=== PATIENT | male | born 1955 | race African-American/Black ===

== ENCOUNTER 2017-03-10 11:32 | Emergency (ER) | payer OTHER ==
[~2017-03-10] VITALS: Ht 167.6 cm; Wt 56.7 kg
[~2017-03-10 11:32] MED LIST: ACYCLOVIR200 MG ORAL; ALBUTEROL SULF8.5 GM INH; AZITHROMYCIN250 MG ORAL; CHERATUSSIN AC118 ML PO; FLOMAX0.4 MG ORAL; IBUPROFEN600 MG ORAL; NAPROSYN500 M1 ORAL; NORCO 5-325 TA1 EACH ORAL; NORVIR100 MG ORAL; PREDNISONE20 MG ORAL; PRENATAL MULTI1 EAC1 PO; PROAIR HFA8.5 GM INH; PROMETHAZINE-C118 M1 ORAL; REYATAZ150 MG ORAL; TRUVADA 200 MG1 EAC1 ORAL
[2017-03-10 11:50] VITALS: BP 120/77
--- NOTE | 2017-03-10 12:31 | Diagnostic Imaging Report ---
Indication: Cough Comparison: 02/08/15 A single view chest radiograph was obtained. Findings: Cardiomediastinal appearance is within normal limits for age. Pulmonary vascularity is appropriate. The diaphragmatic contour is smooth and costophrenic angles are sharp. No pleural effusions are identified. The bones are osteopenic. Impression: No acute findings
[2017-03-10] MEDS ORDERED: PROMETHAZINE-C118 M1 ORAL (12:36)
[2017-03-10] MEDS ORDERED: AMOXICILLIN500 MG ORAL (12:36)
[2017-03-10 12:40] VITALS: BP 110/78
--- NOTE | 2017-03-10 13:09 | Emergency Room Report ---
History of Present Illness General Chief Complaint: Upper Respiratory Illness Present Illness HPI 61-year-old male presents ED for evaluation. Patient is having cough and congestive symptoms for the last 2 days. Cough is productive with yellow phlegm. Denies fevers chills. Denies chest pain or shortness of breath. Patient has history of AIDS, states he is compliant with his medications. Denies sick contacts or recent travel. No other aggravating or leading factors. Denies any other associated symptoms Allergies: Coded Allergies: No Known Allergies (Unverified , 09/03/12) Patient History Past Medical History: none Past Surgical History: none Pertinent Family History: none Social History: Denies: smoking, alcohol use, drug use Immunizations: UTD Reviewed Nursing Documentation: PMH: Agreed, PSxH: Agreed Nursing Documentation-PMH Hx Hypertension: No - HEP B Hx Pacemaker: No Hx Asthma: No Hx COPD: No Hx Diabetes: No Hx Cancer: No Hx Gastrointestinal Problems: No Hx Dialysis: No Hx Cerebrovascular Accident: No Hx Seizures: No Review of Systems All Other Systems: negative except mentioned in HPI Physical Exam Vital Signs Date Time Temp Pulse Resp B/P (MAP) Pulse Ox O2 Delivery O2 Flow Rate FiO2 03/10/17 11:40 98.4 117 20 114/83 99 Room Air Sp02 EP Interpretation: reviewed, normal General Appearance: no apparent distress, alert, GCS 15, non-toxic Head: normocephalic, atraumatic Eyes: bilateral eye normal inspection, bilateral eye PERRL ENT: hearing grossly normal, normal pharynx, no angioedema, normal voice Neck: full range of motion, supple/symm/no masses Respiratory: chest non-tender, lungs clear, normal breath sounds, speaking full sentences Cardiovascular #1: regular rate, rhythm, no edema Cardiovascular #2: 2+ carotid (R), 2+ carotid (L), 2+ radial (R), 2+ radial (L) , 2+ dorsalis pedis (R), 2+ dorsalis pedis (L) Gastrointestinal: normal bowel sounds, non tender, soft, non-distended, no guarding, no rebound Rectal: deferred Genitourinary: normal inspection, no CVA tenderness Musculoskeletal: back normal, gait/station normal, normal range of motion, non- tender Neurologic: alert, oriented x3, responsive, motor strength/tone normal, sensory intact, speech normal Psychiatric: judgement/insight normal, memory normal, mood/affect normal, no suicidal/homicidal ideation Reflexes: 3+ bicep (R), 3+ bicep (L), 3+ tricep (R), 3+ tricep (L), 3+ knee (R) , 3+ knee (L) Skin: normal color, no rash, warm/dry, well hydrated Lymphatic: no adenopathy Medical Decision Making Diagnostic Impression: Primary Impression: Atypical pneumonia ER Course Hospital Course 61-year-old male presents to ED complaining of cough x 2 days Differential diagnoses include: URI, pharyngitis, otitis media, asthma Clinical course Patient placed on stretcher. After initial history, physical exam reveals an elderly male in no acute distress. Bilateral TM unremarkable. No pharyngeal erythema. No tonsillar exudates. No lymphadenopathy. lungs clear. abdomen soft. CXR shows no evidence of infiltrate however, given age and comorbditiies we will treat as atypical pneumonia. I will prescribe abx Diagnosis - atypical pneumonia Stable and discharged home with Rx Amoxicillin, cough syrup. Instructed to followup with PMD. Return to ED if symptoms recur or worsen Chest X-Ray Diagnostic Results Chest X-Ray Diagnostic Results : Chest X-Ray Ordered: Yes # of Views/Limited/Complete: 1 View Indication: Other - cough EP Interpretation: Yes Interpretation: no consolidation, no effusion, no pneumothorax, no acute cardiopulmonary disease Impression: No acute disease Electronically Signed by: Electronically signed by Larry Dotson MD Last Vital Signs Date Time Temp Pulse Resp B/P (MAP) Pulse Ox O2 Delivery O2 Flow Rate FiO2 03/10/17 12:40 87 15 110/78 100 Room Air 03/10/17 12:40 98.4 Status: improved Disposition: HOME, SELF-CARE Condition: Stable Scripts Codeine/Promethazine Hcl* (PROMETHAZINE-CODEINE SYRUP*) 118 Ml Syrup 5 ML ORAL Q6H Y for For Cough, #118 ML 0 Refills Prov: LARRY DOTSON M.D. 03/10/17 Amoxicillin* (AMOXIL*) 500 Mg Capsule 500 MG ORAL THREE TIMES A DAY, #21 CAP Prov: LARRY DOTSON M.D. 03/10/17 Patient Instructions: Community-Acquired Pneumonia, Adult, [id number] LARRY DOTSON M.D. Mar 10, 2017 13:09
== END 2017-03-10 12:40 | disposition home or self-care (01) ==
LOC: EMR 12:00
DX: J18.9 Pneumonia, unspecified organism (principal)
CPT/HCPCS: 71010; 99284

== ENCOUNTER 2017-03-16 12:21 | Emergency (ER) | payer OTHER ==
[~2017-03-16] VITALS: Ht 172.7 cm; Wt 59.0 kg
[~2017-03-16 12:21] MED LIST changes: +AMOXICILLIN500 MG ORAL
[2017-03-16 12:41] VITALS: BP 118/72
--- NOTE | 2017-03-16 13:26 | Emergency Room Report ---
History of Present Illness General Chief Complaint: Flu Like Symptoms Source: Patient Present Illness HPI 61-year-old male HIV positive on treatment, unknown last CD4 count, presenting with one week of subjective fever chills cough and shortness of breath. Patient states that his productive cough with clear sputum. Subjective fever has not measured it. Has not taken any medication. Patient was last seen in the emergency room 6 days ago, had a chest x-ray was discharged. No sick contacts or recent travel Allergies: Coded Allergies: No Known Allergies (Unverified , 09/03/12) Patient History Past Medical History: see triage record Past Surgical History: none Pertinent Family History: none Reviewed Nursing Documentation: PMH: Agreed, PSxH: Agreed Nursing Documentation-PMH Hx Hypertension: No - HEP B Hx Pacemaker: No Hx Asthma: No Hx COPD: No Hx Diabetes: No Hx Cancer: No Hx Gastrointestinal Problems: No Hx Dialysis: No Hx Cerebrovascular Accident: No Hx Seizures: No Review of Systems All Other Systems: negative except mentioned in HPI Physical Exam Vital Signs Date Time Temp Pulse Resp B/P (MAP) Pulse Ox O2 Delivery O2 Flow Rate FiO2 03/16/17 12:33 97.5 88 18 119/75 98 03/16/17 12:39 Room Air Sp02 EP Interpretation: reviewed, normal General Appearance: alert, GCS 15, non-toxic, mild distress, other - Appear short of breath however speaking complete sentences, nontoxic appearing Head: normocephalic, atraumatic Eyes: bilateral eye normal inspection, bilateral eye PERRL, bilateral eye EOMI ENT: normal ENT inspection, normal pharynx, normal voice, moist mucus membranes Neck: normal inspection, full range of motion, supple Respiratory: lungs clear, no retraction, no wheezing, respiratory distress, speaking full sentences, other - Clear breath sounds bilaterally, chest symmetrical Cardiovascular #1: normal inspection, regular rate, rhythm, no edema, normal capillary refill Cardiovascular #2: 2+ radial (R), 2+ radial (L) Gastrointestinal: normal inspection, non tender, soft, non-distended, no guarding Genitourinary: no CVA tenderness Musculoskeletal: normal inspection, back normal, normal range of motion, non- tender Neurologic: normal inspection, alert, oriented x3, responsive, motor strength/ tone normal, sensory intact, normal gait, speech normal Psychiatric: normal inspection, judgement/insight normal, memory normal Skin: normal inspection, normal color, no rash, warm/dry, well hydrated, normal turgor Medical Decision Making Diagnostic Impression: Primary Impression: Atypical pneumonia ER Course 61-year-old male, HIV positive, presenting with cough for 10 days DDX: Viral URI vs. pneumonia Patient also HIV-positive, immunocompromised Plan: Will perform blood work including blood cultures, CXR ER course: Patient remains nontoxic CXR obtained + interstitial infiltrates Got one nebs tx has been nad, VSS, not hypoxic or tachypneic Disposition: Patient is to be discharged home with a prescription of teskeena medinaes. He is alreayd on amox from previous ED visit and is instructed to continue to take that abx Strict precautions discussed with patient on when to return to the emergency room including hemoptysis, high fevers, chills, SOB, chest pain which may indicate severe illness. Patient is to follow up with their primary care doctor within 5 days. Patient agrees with plan. Please note that this Emergency Department Report was dictated using [employer] writer technology software, occasionally this can lead to erroneous entry secondary to interpretation by the dictation equipment EKG Diagnostic Results EP Interpretation: Yes Rate: normal Rhythm: NSR ST Segments: No acute changes ASA given to patient: no Rhythm Strip EP Interpretation: Yes Rate: 62 Rhythm: NSR, no PVCs, no ectopy Chest X-ray CXR: Ordered: Yes 1 view Indication: SOB EP interpretation: Yes Interpretation: interstitial infiltrates Impression: interstit infiltrates Electronically signed by Timoteo Nagy MD Laboratory Tests Test 03/16/17 14:10 03/16/17 14:16 White Blood Count 4.0 K/UL (4.8-10.8) L Red Blood Count 3.79 M/UL (4.70-6.10) L Hemoglobin 12.0 G/DL (14.2-18.0) L Hematocrit 35.8 % (42.0-52.0) L Mean Corpuscular Volume 95 FL (80-99) Mean Corpuscular Hemoglobin 31.6 PG (27.0-31.0) H Mean Corpuscular Hemoglobin Concent 33.4 G/DL (32.0-36.0) Red Cell Distribution Width 10.4 % (11.6-14.8) L Platelet Count 273 K/UL (150-450) Mean Platelet Volume 5.9 FL (6.5-10.1) L Neutrophils (%) (Auto) 61.3 % (45.0-75.0) Lymphocytes (%) (Auto) 24.6 % (20.0-45.0) Monocytes (%) (Auto) 10.2 % (1.0-10.0) H Eosinophils (%) (Auto) 2.4 % (0.0-3.0) Basophils (%) (Auto) 1.4 % (0.0-2.0) Urine Color Yellow Urine Appearance Clear Urine pH 6 (4.5-8.0) Urine Specific [place] 1.010 (1.005-1.035) Urine Protein Negative (NEGATIVE) Urine Glucose (UA) Negative (NEGATIVE) Urine Ketones Negative (NEGATIVE) Urine Occult Blood Negative (NEGATIVE) Urine Nitrite Negative (NEGATIVE) Urine Bilirubin Negative (NEGATIVE) Urine Urobilinogen 1 MG/DL (0.0-1.0) H Urine Leukocyte Esterase 1+ (NEGATIVE) H Urine RBC 0-2 /HPF (0 - 0) H Urine WBC 0-2 /HPF (0 - 0) Urine Squamous Epithelial Cells Occasional /LPF Urine Bacteria Occasional /HPF (NONE) Sodium Level 139 MMOL/L (136-145) Potassium Level 3.7 MMOL/L (3.5-5.1) Chloride Level 103 MMOL/L (98-107) Carbon Dioxide Level 29 MMOL/L (21-32) Anion Gap 7 mmol/L (5-15) Blood Urea Nitrogen 9 mg/dL (7-18) Creatinine 1.2 MG/DL (0.55-1.30) Estimate Glomerular Filtration Rate > 60 mL/min (>60) Glucose Level 132 MG/DL (74-106) H Calcium Level 9.1 MG/DL (8.5-10.1) Total Bilirubin 1.3 MG/DL (0.2-1.0) H Direct Bilirubin 0.2 MG/DL (0.0-0.3) Aspartate Amino Transferase (AST) 21 U/L (15-37) Alanine Aminotransferase (ALT) 18 U/L (12-78) Alkaline Phosphatase 44 U/L (46-116) L Total Protein 7.1 G/DL (6.4-8.2) Albumin 3.2 G/DL (3.4-5.0) L Globulin 3.9 g/dL Albumin/Globulin Ratio 0.8 (1.0-2.7) L Lactic Acid Level 1.20 mmol/L (0.66-2.22) Last Vital Signs Date Time Temp Pulse Resp B/P (MAP) Pulse Ox O2 Delivery O2 Flow Rate FiO2 03/16/17 12:41 97.6 66 15 118/72 100 Room Air Disposition: HOME, SELF-CARE Condition: Improved Scripts Benzonatate* (LOTTIE SOUZA*) 100 Mg Capsule 100 MG ORAL THREE TIMES A DAY for 7 Days, #21 PERLE 0 Refills Prov: Timoteo Nagy M.D. 03/16/17 Timoteo Nagy M.D. Mar 16, 2017 13:26
[2017-03-16] MEDS ORDERED: TESSALON PERLE100 MG ORAL (13:28)
[2017-03-16 14:25] VITALS: BP 105/74
[2017-03-16 14:30] LABS: APPEARANCE,URINE CLEAR; KETONES,URINE NEGATIVE (NEGATIVE); LEUKOCYTE ESTERASE ,URINE 1+ (NEGATIVE); NITRITE,URINE NEGATIVE (NEGATIVE); PH,URINE 6 (4.5-8.0); PROTEIN,URINE NEGATIVE (NEGATIVE); UROBILINOGEN,URINE 1 MG/DL (0.0-1.0)
[2017-03-16] MEDS ORDERED: Albuterol ud Inhalation HHN ONE (14:30)
[2017-03-16 14:32] LABS: BASOPHILS % (AUTO) 1.4 % (0.0-2.0); EOSINOPHILS % (AUTO) 2.4 % (0.0-3.0); LYMPHOCYTES % (AUTO) 24.6 % (20.0-45.0); MEAN CORPUSCULAR HEMOGLOBIN 31.6 PG (27.0-31.0); MEAN CORPUSCULAR HGB CONC 33.4 G/DL (32.0-36.0); MEAN CORPUSCULAR VOLUME 95 FL (80-99); MEAN PLATELET VOLUME 5.9 FL (6.5-10.1); MONOCYTES % (AUTO) 10.2 % (1.0-10.0); NEUTROPHILS % (AUTO) 61.3 % (45.0-75.0); PLATELET COUNT 273 K/UL (150-450); RED BLOOD COUNT 3.79 M/UL (4.70-6.10); RED CELL DISTRIBUTION WIDTH 10.4 % (11.6-14.8)
[2017-03-16 14:40] LABS: BACTERIA,URINE OCCASIONAL /HPF; RBC,URINE 0-2 /HPF (0 - 0); SQUAMOUS EPITHELIAL CELL,UR OCCASIONAL /LPF (NONE/OCC); WBC,URINE 0-2 /HPF (0 - 0)
--- NOTE | 2017-03-16 14:51 | Diagnostic Imaging Report ---
Indication: COUGH Technique: One view of the chest Comparison: 03/10/2017 Findings: Lungs and pleural spaces are clear. Heart size is normal. No significant change Impression: No acute process
[2017-03-16 15:14] VITALS: BP 116/72
[2017-03-16 15:14] LABS: ALANINE AMINOTRANSFERASE 18 U/L (12-78); ALBUMIN/GLOBULIN RATIO 0.8 (1.0-2.7); ANION GAP 7 mmol/L (5-15); ASPARTATE AMINO TRANSFERASE 21 U/L (15-37); CALCIUM 9.1 MG/DL (8.5-10.1); CARBON DIOXIDE 29 MMOL/L (21-32); CHLORIDE 103 MMOL/L (98-107); CREATININE 1.2 MG/DL (0.55-1.30); GLOMERULAR FILTRATION RATE > 60 mL/min (>60); POTASSIUM 3.7 MMOL/L (3.5-5.1); SODIUM 139 MMOL/L (136-145); TOTAL PROTEIN 7.1 G/DL (6.4-8.2)
[2017-03-16 15:17] LABS: BILIRUBIN,DIRECT 0.2 MG/DL (0.0-0.3)
--- NOTE | 2017-03-18 15:22 | Cardiology Report ---
APPROVED REPORT EKG Measurement Heart [id number] Normal sinus rhythm Normal ECG
== END 2017-03-16 15:17 | disposition home or self-care (01) ==
LOC: EMR 13:34
DX: J18.9 Pneumonia, unspecified organism (principal)
CPT/HCPCS: 36415; 71010; 80053; 81003; 82248; 83605; 85025; 87040; 93005; 94640; 94664; 99283

== ENCOUNTER 2017-09-25 12:09 | Emergency (ER) | payer OTHER ==
[~2017-09-25] VITALS: Ht 170.2 cm; Wt 61.2 kg
[~2017-09-25 12:09] MED LIST changes: +TESSALON PERLE100 MG ORAL
--- NOTE | 2017-09-25 12:39 | Emergency Room Report ---
History of Present Illness General Chief Complaint: Male Urogenital Problems Source: Patient Present Illness HPI 62-year-old male patient presents to ER requesting HIV testing. Patient reports that he was told by a "friend" that he contracted HPV from saliva. Patient requesting HPV testing. Patient reports that he also experienced a sore on his penis yesterday but it disappeared today. Patient denies dysuria, hematuria, penile discharge. Patient denies testicular pain or swelling. Patient reports history of HIV. Patient reports that he had his labs drawn a month ago and since they were "normal, reports viral load was detectable. Patient reports history of sexual encounter 2 days ago. Reports use protection during sex. Patient denies fever, chest pain, shortness of breath. patient reports he has appointment with his physician in a few days. Allergies: Coded Allergies: No Known Allergies (Unverified , 09/03/12) Patient History Past Medical History: see triage record Reviewed Nursing Documentation: PMH: Agreed; PSxH: Agreed Nursing Documentation-PMH Hx Hypertension: No - HEP B Hx Pacemaker: No Hx Asthma: No Hx COPD: No Hx Diabetes: No Hx Cancer: No Hx Gastrointestinal Problems: No Hx Dialysis: No Hx Cerebrovascular Accident: No Hx Seizures: No Review of Systems All Other Systems: negative except mentioned in HPI Physical Exam Vital Signs Date Time Temp Pulse Resp B/P (MAP) Pulse Ox O2 Delivery O2 Flow Rate FiO2 09/25/17 12:28 98.4 71 16 119/81 100 Room Air 98.4 Sp02 EP Interpretation: reviewed, normal General Appearance: well appearing, no apparent distress, alert, GCS 15, non- toxic Head: normocephalic, atraumatic Eyes: bilateral eye normal inspection, bilateral eye PERRL ENT: hearing grossly normal, normal pharynx, no angioedema, normal voice, uvula midline, moist mucus membranes Neck: full range of motion Respiratory: lungs clear, normal breath sounds, no rhonchi, no respiratory distress, no accessory muscle use, no wheezing, speaking full sentences Cardiovascular #1: regular rate, rhythm, no edema Genitourinary: no CVA tenderness, penis normal - Circumcised, other - No vesicles, no rash, no lesion, no ulcer, no testicular swelling, no inguinal adenopathy. Musculoskeletal: back normal, digits/nails normal, gait/station normal, normal range of motion, non-tender Neurologic: alert, oriented x3, responsive, motor strength/tone normal, sensory intact Psychiatric: mood/affect normal Skin: no rash Medical Decision Making PA Attestation Dr. Nielsen is my supervising Physician whom patient management has been discussed with. Diagnostic Impression: Primary Impression: Encounter for assessment of sexually transmitted disease exposure ER Course Pt. presents to the ED for HPV testing. Hx of HIV. Multiple differentials considered. Vital signs: are WNL, pt. is afebrile Ordered UA. ER COURSE: UA negative for nitrites, leukocyte esterase, patient asx, low suspicion for UTI. PE benign, no penile discharge, no testicular swelling, no genital warts or lesions, visible. Patient denies acute complaints currently. Instructed patient to followup at scheduled appointment with PCP for HPV testing. Discuss HPV with patient. Provided patient with reading material regarding HPV. Practice safe sex. Do not have unprotected sex when HIV positive.Must inform partner of HIV status. Reports had unprotected sex years ago and then was diagnosed with HIV following this exposure. Denies recent unprotected sexual contact, has protected sex with single partner. DISCHARGE: Advised to use safe sex practices including but not limited to use of condoms. Instructed patient to follow up with STI clinic and/or PCP for future STI treatment and prevention. Instructed patient to inform partner of need for treatment to prevent future infection. Patient is resting comfortably, in no acute distress, nontoxic appearing, talking without difficulty. Patient to take medications as instructed Will provide with patient care instructions and any necessary prescriptions. Care plan and follow-up instructions provided. Patient instructed to follow-up with primary care provider in 3 - 5 days. Patient questions asked and answered. Patient reports understanding and agreement to treatment plan. ER precautions given. Patient instructed to return to ER immediately for any new or worsening of symptoms including but not limited to increasing SOB, persistent fever. - Please note that this Emergency Department Report was dictated using [employer] tr[employer] technology software, occasionally this can lead to erroneous entry secondary to interpretation by the dictation equipment. Labs Test 09/25/17 12:41 Urine Color Pale yellow Urine Appearance Clear Urine pH 6 (4.5-8.0) Urine Specific [place] 1.005 (1.005-1.035) Urine Protein Negative (NEGATIVE) Urine Glucose (UA) Negative (NEGATIVE) Urine Ketones Negative (NEGATIVE) Urine Occult Blood Negative (NEGATIVE) Urine Nitrite Negative (NEGATIVE) Urine Bilirubin Negative (NEGATIVE) Urine Urobilinogen Normal MG/DL (0.0-1.0) Urine Leukocyte Esterase Negative (NEGATIVE) Last Vital Signs Date Time Temp Pulse Resp B/P (MAP) Pulse Ox O2 Delivery O2 Flow Rate FiO2 09/25/17 12:28 98.4 71 16 119/81 100 Room Air 98.4 Disposition: HOME, SELF-CARE Condition: Stable Patient Instructions: Genital Warts, [id number], HPV Test, Human Papillomavirus, [id number] Additional Instructions: Followup with primary care provider at scheduled appointment. Request HPV testing at that time. Have labs drawn to check for viral load and white blood cell count levels. Follow-up of STI clinic if concern for STI Use condoms during sex. Take medications as directed. Patient questions asked and answered. ER precautions given, patient instructed to return to ER immediately for any new or worsening of symptoms. Gera Crum September 25, 2017 12:39
[2017-09-25 13:07] LABS: APPEARANCE,URINE CLEAR; BILIRUBIN, URINE NEGATIVE (NEGATIVE); COLOR,URINE PALE YELLOW; GLUCOSE, URINE (UA) NEGATIVE (NEGATIVE); KETONES,URINE NEGATIVE (NEGATIVE); LEUKOCYTE ESTERASE ,URINE NEGATIVE (NEGATIVE); NITRITE,URINE NEGATIVE (NEGATIVE); PH,URINE 6 (4.5-8.0); PROTEIN,URINE NEGATIVE (NEGATIVE); UROBILINOGEN,URINE NORMAL MG/DL (0.0-1.0)
[2017-09-25 13:30] VITALS: BP 120/81
== END 2017-09-25 13:35 | disposition home or self-care (01) ==
LOC: EMR 12:54
DX: Z04.8 Encounter for examination and observation for other specified reasons (principal); Z20.2 Contact with and (suspected) exposure to infections with a predominantly sexual mode of transmission
CPT/HCPCS: 81003; 99283

== ENCOUNTER 2017-11-11 21:48 | Emergency (ER) | payer OTHER ==
[~2017-11-11] VITALS: Ht 170.2 cm; Wt 56.7 kg
--- NOTE | 2017-11-11 22:10 | Emergency Room Report ---
History of Present Illness General Chief Complaint: Pain Source: Patient Present Illness HPI Patient fell backwards from the stool that slipped out from under him. He landed on his left hand. He has left thumb pain. There is no numbness. There was no loss of consciousness. Pain rated at 9/10, aching. Some swelling of the thumb. No fevers, blood thinners, back pain, other extremity pain. The patient is a keyboard player. R handed, but needs both hands. Allergies: Coded Allergies: No Known Allergies (Unverified , 11/11/17) Patient History Social History: Reports: smoking, alcohol use Social History Narrative keyboard player Reviewed Nursing Documentation: PMH: Agreed; PSxH: Agreed Nursing Documentation-PMH Past Medical History: No Stated History Hx Hypertension: No - HEP B Hx Pacemaker: No Hx Asthma: No Hx COPD: No Hx Diabetes: No Hx Cancer: No Hx Gastrointestinal Problems: No Hx Dialysis: No Hx Cerebrovascular Accident: No Hx Seizures: No Review of Systems Constitutional: Reports: see HPI Musculoskeletal: Reports: see HPI Skin: Reports: see HPI Neurological: Reports: see HPI Hematologic/Lymphatic: Reports: see HPI Physical Exam Vital Signs Date Time Temp Pulse Resp B/P (MAP) Pulse Ox O2 Delivery O2 Flow Rate FiO2 11/11/17 22:00 98.0 68 18 122/85 98 Room Air 98.1 Sp02 EP Interpretation: reviewed, normal General Appearance: well appearing, no apparent distress, GCS 15, other - sl alcohol breath Head: normocephalic, atraumatic Eyes: bilateral eye normal inspection, bilateral eye PERRL ENT: hearing grossly normal, normal voice, moist mucus membranes Neck: full range of motion, supple Respiratory: no respiratory distress, speaking full sentences Cardiovascular #1: regular rate, rhythm Cardiovascular #2: 2+ radial (L) - good cap fill Musculoskeletal: back normal, decreased range of mation - L thumb, swelling - L thumb as well as MCPs, other - TTP 1st phalynx thumb, ligaments stable, wrist not tender Neurologic: alert, motor strength/tone normal - except thumb, sensory intact, normal gait Psychiatric: mood/affect normal Skin: no rash Medical Decision Making Diagnostic Impression: Primary Impression: Contusion of left thumb Qualified Codes: S60.112A - Contusion of left thumb with damage to nail, initial encounter ER Course Patient presents with left hand pain after falling. Differential includes contusion, fracture, sprain - no evidence of games keeper injury. X-rays are indicated. Also patient will receive Motrin. Xrays without fx. Thumb spika applied by tech. Position excellent with improvement. Neurovasc checked by me and normal. Patient stable for outpatient observation and treatment Other X-Ray Diagnostic Results Other X-Ray Diagnostic Results : X-Ray ordered: L hand # of Views/Limited Vs Complete: 3 View Indication: Other EP Interpretation: Yes Interpretation: no dislocation, no soft tissue swelling, no fractures, other - DJD Impression: Other Electronically Signed by: Electronically signed by James Chapin MD Last Vital Signs Date Time Temp Pulse Resp B/P (MAP) Pulse Ox O2 Delivery O2 Flow Rate FiO2 11/11/17 23:21 98.0 78 16 120/81 98 Room Air Status: improved Disposition: HOME, SELF-CARE Condition: Improved Scripts Ibuprofen* (MOTRIN*) 600 Mg Tablet 600 MG ORAL Q6H PRN for For Pain, #20 TAB Prov: James Chapin M.D. 11/11/17 James Chapin M.D. Nov 11, 2017 22:10
[2017-11-11 22:15] VITALS: BP 122/85
[2017-11-11] MEDS ORDERED: IBUPROFEN600 MG ORAL (23:14)
[2017-11-11 23:21] VITALS: BP 120/81
--- NOTE | 2017-11-12 10:32 | Diagnostic Imaging Report ---
Indication: Trauma, thumb injury Technique: 3 views left hand Comparison: none Findings: The bones are diffusely demineralized. No acute fractures. No dislocations. The joint spaces are preserved Impression: No acute bony trauma Osteoporotic change
== END 2017-11-11 23:23 | disposition home or self-care (01) ==
LOC: EMR 22:32
DX: S60.012A Contusion of left thumb without damage to nail, initial encounter (principal); W20.8XXA Other cause of strike by thrown, projected or falling object, initial encounter; Y92.9 Unspecified place or not applicable
CPT/HCPCS: 99283

== ENCOUNTER 2018-05-28 15:14 | Emergency (ER) | payer OTHER ==
[~2018-05-28] VITALS: Ht 167.6 cm; Wt 59.0 kg
[2018-05-28 15:20] VITALS: BP 131/76
--- NOTE | 2018-05-28 15:58 | Emergency Room Report ---
History of Present Illness General Chief Complaint: Upper Respiratory Illness Source: Patient Present Illness HPI 62-year-old male presents to the emergency department complaining of persistent dry and sometimes painful cough times one week. Patient reports history of HIV and he is not sure when his last CD4 count was as every now and then he will miss his appointments. Patient states that he is compliant with his antiviral medications. Denies fevers, chills, sputum production, recent travel or ill contacts with similar symptoms. Denies sore throat, ear pain, high fevers, lethargy, neck pain/stiffness, irritability, photophobia dehydration, N/V/D. Denies Cp, Palpitations, LOC, AMS, seizures, paresthesias, or changes in Hearing or vision, no Sudden severe JO. Pt with COPD hx. Allergies: Coded Allergies: No Known Allergies (Unverified , 11/11/17) Patient History Past Medical History: see triage record Past Surgical History: none Pertinent Family History: none Immunizations: UTD Reviewed Nursing Documentation: PMH: Agreed; PSxH: Agreed Nursing Documentation-PMH Hx Hypertension: No - HEP B Hx Pacemaker: No Hx Asthma: No Hx COPD: No Hx Diabetes: No Hx Cancer: No Hx Gastrointestinal Problems: No Hx Dialysis: No Hx Cerebrovascular Accident: No Hx Seizures: No Review of Systems All Other Systems: negative except mentioned in HPI Physical Exam Vital Signs Date Time Temp Pulse Resp B/P (MAP) Pulse Ox O2 Delivery O2 Flow Rate FiO2 05/28/18 15:16 98.8 74 18 131/76 96 Room Air Sp02 EP Interpretation: reviewed, normal General Appearance: no apparent distress, alert, GCS 15, non-toxic Head: normocephalic, atraumatic Eyes: bilateral eye normal inspection, bilateral eye PERRL ENT: hearing grossly normal, normal voice Neck: full range of motion Respiratory: chest non-tender, normal breath sounds, no respiratory distress, no accessory muscle use, speaking full sentences, wheezing Cardiovascular #1: regular rate, rhythm Musculoskeletal: back normal, gait/station normal, normal range of motion, non- tender Neurologic: alert, oriented x3, responsive, motor strength/tone normal, sensory intact, speech normal, grossly normal Psychiatric: judgement/insight normal Skin: normal color, no rash, warm/dry, well hydrated Lymphatic: no adenopathy Medical Decision Making PA Attestation Dr. olsen is my supervising Physician whom patient management has been discussed with. Diagnostic Impression: Primary Impression: Atypical pneumonia ER Course 62-year-old male presents to the emergency department complaining of persistent dry cough times one week. Patient reports history of HIV and he is not sure when his last CD4 count was as every now and then he will miss his appointments. Patient states that he is compliant with his antiviral medications. Denies fevers, chills, sputum production, recent travel or ill contacts with similar symptoms. Denies sore throat, ear pain, high fevers, lethargy, neck pain/stiffness, irritability, photophobia dehydration, N/V/D. Denies Cp, Palpitations, LOC, AMS, seizures, paresthesias, or changes in Hearing or vision, no Sudden severe JO. Denies hx of smoking, asthma or COPD. Ddx considered but are not limited to URI, pneumonia, PE, strep pharyngitis, meningitis. Vital signs: Pt.is afebrile VS are WNL H&PE are most consistent with bronchitis ORDERS: CXR ED INTERVENTIONS: - Albuterol Nebs DISCHARGE: At this time pt. is stable for d/c to home. Will provide printed patient care instructions, and any necessary prescriptions. Care plan and follow up instructions have been discussed with the patient prior to discharge. Chest X-Ray Diagnostic Results Chest X-Ray Diagnostic Results : Chest X-Ray Ordered: Yes # of Views/Limited/Complete: 1 View EP Interpretation: Yes PA Xray: Interpretation reviewed, by supervising MD, and agrees with findings. Interpretation: no consolidation, no effusion, no pneumothorax Impression: No acute disease Electronically Signed by: Shayy Medley PA-C Last Vital Signs Date Time Temp Pulse Resp B/P (MAP) Pulse Ox O2 Delivery O2 Flow Rate FiO2 05/28/18 15:20 74 18 Room Air 05/28/18 15:20 98.8 131/76 96 Disposition: HOME, SELF-CARE Condition: Stable Scripts Codeine/Promethazine Hcl* (PROMETHAZINE-CODEINE SYRUP*) 118 Ml Syrup 5 ML ORAL Q6H PRN for For Cough, #120 ML 0 Refills Prov: Shayy Medley 05/28/18 Azithromycin* (ZITHROMAX*) 250 Mg Tablet 250 MG ORAL DAILY, #6 TAB 0 Refills Take two tables once daily for 1 day, then one tablet once daily for 4 days. Prov: Shayy Medley 05/28/18 Referrals: RUDI SAL,REFERRING (PCP) Patient Instructions: Acute Bronchitis, [id number] Additional Instructions: Take medications as directed. Follow up with a Primary Care Provider in 3-5 days, even if your symptoms have resolved. --Please review list of primary care clinics, if you do not already have a primary care provider Return sooner to ED if new symptoms occur, or current symptoms become worse. Do not drink alcohol, drive, or operate heavy machinery while taking Cough Syrup as this may cause drowsiness. - Please note that this Emergency Department Report was dictated using Rent[employer] checker technology software, occasionally this can lead to erroneous entry secondary to interpretation by the dictation equipment. Shayy Medley May 28, 2018 15:58
[2018-05-28] MEDS ORDERED: PROMETHAZINE-C118 M1 ORAL (15:59)
[2018-05-28] MEDS ORDERED: ZITHROMAX250 MG ORAL (15:59)
[2018-05-28] MEDS: Albuterol ud Inhalation HHN ONE (16:02)
[2018-05-28 17:03] VITALS: BP 128/72
--- NOTE | 2018-05-29 15:50 | Diagnostic Imaging Report ---
EXAM: XR Chest, 1 View CLINICAL HISTORY: PAIN TECHNIQUE: Frontal view of the chest. COMPARISON: No relevant prior studies available. FINDINGS: Lungs: No consolidation. Pleural space: Unremarkable. No pneumothorax. Heart: Unremarkable. No cardiomegaly. Mediastinum: Unremarkable. Bones/joints: No acute fracture. IMPRESSION: No acute cardiopulmonary disease.
== END 2018-05-28 17:04 | disposition home or self-care (01) ==
LOC: EMR 15:46
DX: J18.9 Pneumonia, unspecified organism (principal); B20 Human immunodeficiency virus [HIV] disease
CPT/HCPCS: 71045; 94640; 94664; 99284

== ENCOUNTER 2019-02-01 09:15 | Emergency (ER) | payer OTHER ==
[~2019-02-01] VITALS: Ht 170.2 cm; Wt 59.0 kg
[~2019-02-01 09:15] MED LIST changes: +ZITHROMAX250 MG ORAL
[2019-02-01 09:39] VITALS: BP 129/79
--- NOTE | 2019-02-01 09:41 | NUR ---
ED Nurse Note:pt. came with left eye pain and irritation since yesterday, visual acuity was done MD notified
[2019-02-01] MEDS ORDERED: Fluorescein Strips ONE (09:47)
[2019-02-01] MEDS ORDERED: Tetracaine 0.5% Opth 4ml Soln ONE (09:47)
[2019-02-01] MEDS ORDERED: Fluorescein Strips LEFT EYE ONE (10:15)
[2019-02-01] MEDS ORDERED: Tetracaine 0.5% Opth 4ml Soln LEFT EYE ONE (10:15)
[2019-02-01] MEDS ORDERED: TOBRADEX EYE O3.5 G1 OP (10:34)
[2019-02-01] MEDS ORDERED: IBUPROFEN600 MG ORAL (10:34)
[2019-02-01] MEDS ORDERED: NAPHCON-A EYE D15 ML OP (10:34)
--- NOTE | 2019-02-01 10:40 | NUR ---
ER DISCHARGE NOTE: Patient is cleared to be discharged per ERMD, pt is aox4, on room air, with stable vital signs. pt was given dc and prescription instructions, pt was able to verbalize understanding, pt is able to ambulate with steady gait. pt took all belongings.
[2019-02-01 11:01] VITALS: BP 129/79
--- NOTE | 2019-02-01 14:47 | Emergency Room Report ---
History of Present Illness General Chief Complaint: Eye Problems Source: Patient Present Illness HPI Patient presents to the emergency department today complaining of left eye pain. Patient states that he started to feel some itching and irritation in his left arm progressively became worse today. He is complaining some mild photophobia and pain in his eye associate with some swelling in his conjunctivae. Denies any visual changes. Denies any fever chest pain shortness of breath. Denies any trauma. Patient states that he does not wear contact lenses. No history of glaucoma. No other complaints were noted. Symptoms noted to be moderate to severe. No other modifying factors. No other associated signs and symptoms. No other complaints were noted. Allergies: Coded Allergies: No Known Allergies (Unverified , 11/11/17) Patient History Past Medical History: none Past Surgical History: none Pertinent Family History: none Social History: Denies: smoking, alcohol use, drug use Reviewed Nursing Documentation: PMH: Agreed; PSxH: Agreed Nursing Documentation-PMH Past Medical History: No History, Except For Hx Hypertension: No - HEP B Hx Pacemaker: No Hx Asthma: No Hx COPD: No Hx Diabetes: No Hx Cancer: No Hx Gastrointestinal Problems: No Hx Dialysis: No Hx Cerebrovascular Accident: No Hx Seizures: No Review of Systems All Other Systems: negative except mentioned in HPI Physical Exam Vital Signs Date Time Temp Pulse Resp B/P (MAP) Pulse Ox O2 Delivery O2 Flow Rate FiO2 02/01/19 09:24 98.1 60 20 129/79 (96) 99 Room Air Sp02 EP Interpretation: reviewed, normal General Appearance: normal inspection, well appearing, no apparent distress, alert Head: atraumatic Eyes: right eye normal inspection; left eye fluoroscene uptake - Florouscene uptake, left eye other - chemosis left eye; bilateral eye PERRL, bilateral eye EOMI ENT: normal ENT inspection, hearing grossly normal, normal voice Neck: normal inspection, full range of motion, supple, no bony tend Respiratory: normal inspection, lungs clear, normal breath sounds, no respiratory distress, no retraction, no wheezing Cardiovascular #1: regular rate, rhythm, no edema Gastrointestinal: normal inspection, normal bowel sounds, non tender, soft, no guarding, no hernia Genitourinary: no CVA tenderness Musculoskeletal: normal inspection, back normal, normal range of motion Neurologic: normal inspection, alert, responsive, speech normal Psychiatric: normal inspection, judgement/insight normal, mood/affect normal Skin: no rash Medical Decision Making Diagnostic Impression: Primary Impression: Chemosis of left conjunctiva ER Course Patient presents emergency department today complaining of eye swelling and eye pain. Differential considerations include chemosis, conjunctivitis, corneal abrasion, glaucoma just name a few. Given patient's presentation patient require extensive eye exam. There is no evidence of any forcing uptake. Patient's eye pressures on the left was approximately 18. Given patient had normal eye pressure, glaucoma was essentially excluded. Patient's exam however was consistent with chemosis. Therefore will start patient on TobraDex. Will recommend outpatient follow-up with ophthalmology. Recommend outpatient follow- up return to ER for any worsening symptoms and as needed. Last Vital Signs Date Time Temp Pulse Resp B/P (MAP) Pulse Ox O2 Delivery O2 Flow Rate FiO2 02/01/19 11:01 98.1 60 20 129/79 99 Room Air Status: improved Disposition: HOME, SELF-CARE Condition: Stable Scripts Ibuprofen* (MOTRIN*) 600 Mg Tablet 600 MG ORAL Q8H PRN for For Pain, #30 TAB 0 Refills Prov: Grant Nielsen MD 02/01/19 Naphazoline Hcl/Phenir Mal (NAPHCON-A EYE DROPS) 15 Ml Drops 15 ML OP QID for 7 Days, ML Prov: Grant Nielsen MD 02/01/19 Tobramycin/Dexamethasone (TOBRADEX EYE OINTMENT) 3.5 Gm Oint...g. 3.5 GM OP TID for 7 Days, GM Prov: Grant Nielsen MD 02/01/19 Referrals: Peter Mathew MD NON PHYSICIAN (PCP) Patient Instructions: Chemical Conjunctivitis, [id number] Grant Nielsen MD Feb 01, 2019 14:47
== END 2019-02-01 10:40 | disposition home or self-care (01) ==
LOC: EMR 09:35
DX: H11.422 Conjunctival edema, left eye (principal); B19.10 Unspecified viral hepatitis B without hepatic coma
CPT/HCPCS: 99283

== ENCOUNTER 2019-08-10 14:26 | Emergency (ER) | payer OTHER ==
[~2019-08-10] VITALS: Ht 170.2 cm; Wt 59.0 kg
[~2019-08-10 14:26] MED LIST changes: +NAPHCON-A EYE D15 ML OP; +TOBRADEX EYE O3.5 G1 OP
--- NOTE | 2019-08-10 14:30 | NUR ---
ED Nurse Note: PT walked into ED for C/O cough x 3 days. denies fever or recent travel.
[2019-08-10 14:32] VITALS: BP 124/73
[2019-08-10] MEDS ORDERED: Albuterol 90mcg Inhaler 8gm INH PRN (15:00)
--- NOTE | 2019-08-10 15:01 | Emergency Room Report ---
History of Present Illness General Chief Complaint: Upper Respiratory Illness Source: Patient Present Illness HPI Patient is a 63-year-old male past medical history of HIV on antiretrovirals unknown viral load and CD4 count who presents to the ER complaining of cough, shortness of breath and chest wall pain when coughing for the past 3 days. Patient denies any fever or chills. He denies any lower extremity pain or edema. He denies any recent travel. He denies any sick contacts. He denies any history of smoking. He denies any abdominal pain, nausea or vomiting. COVID-19 risk:Travel to affect: No Has patient experienced wiggins: No Coronavirus symptoms experienc: Cough Allergies: Coded Allergies: No Known Allergies (Unverified , 11/11/17) Patient History Past Medical History: HIV Past Surgical History: none Social History: Denies: smoking, alcohol use, drug use Nursing Documentation-[facility] Past Medical History: No History, Except For Hx Hypertension: No - HEP B Hx Pacemaker: No Hx Asthma: No Hx COPD: No Hx Diabetes: No Hx Cancer: No Hx Gastrointestinal Problems: No Hx Dialysis: No Hx Cerebrovascular Accident: No Hx Seizures: No Review of Systems All Other Systems: negative except mentioned in HPI Physical Exam Vital Signs Date Time Temp Pulse Resp B/P (MAP) Pulse Ox O2 Delivery O2 Flow Rate FiO2 08/10/19 14:26 98.2 71 18 124/73 (90) 98 Room Air Sp02 EP Interpretation: reviewed, normal General Appearance: no apparent distress, alert, GCS 15, non-toxic Head: normocephalic, atraumatic Eyes: bilateral eye normal inspection, bilateral eye PERRL ENT: hearing grossly normal, normal pharynx, no angioedema, normal voice Neck: full range of motion, supple/symm/no masses Respiratory: chest non-tender, speaking full sentences, other - Scattered wheezes Cardiovascular #1: regular rate, rhythm, no edema Gastrointestinal: normal bowel sounds, non tender, soft, non-distended, no guarding, no rebound Rectal: deferred Genitourinary: normal inspection, no CVA tenderness Musculoskeletal: back normal, normal range of motion, calf tenderness, gait/ station normal, non-tender Neurologic: alert, motor strength/tone normal, oriented x3, sensory intact, responsive, speech normal Psychiatric: judgement/insight normal, memory normal, mood/affect normal, no suicidal/homicidal ideation Skin: no rash Lymphatic: no adenopathy Medical Decision Making Diagnostic Impression: Primary Impression: Bronchitis Additional Impression: Viral respiratory illness ER Course Patient's ER work-up demonstrates no significant acute findings. Patient is afebrile. Chest x-ray demonstrates no acute cardiopulmonary pathology. Covid- 19 testing has been sent which takes up to 4 days. I informed the patient that he should self quarantine until the results of his tests. Patient is well- appearing. Patient presents to the emergency room with mild respiratory infection. I explained that this could be due to respiratory infection such as the cold, the flu or Coronavirus Disease. Most people with such infections can get better with appropriate home care and without the need to see a provider. People who are elderly, or have a weak immune system or other medical problems are at a higher risk of more serious illness or complications. I recommend that they carefully monitor their symptoms closely and seek medical care early if their symptoms get worse. I recommend rest, drinking plenty of fluids, taking [id number] cold and flu medications to reduce fever and pain. I noted that these medicines do not cure the illness and therefore do not stop them from spreading the germs. I recommend self quarantine for 14 days. I recommend isolation until tests show that the patient does not have Covid-19 or they are told by the public health department or their primary care physician that they are no longer infectious. After discussing risks and benefits of further diagnostics, treatment plans, as well as indications for and risks of admission, the patient is agreeable to being discharged home. I have explained that their evaluation and treatment in the emergency department today is an important step towards them achieving better health but that their evaluation today is not intended to replace further evaluation and treatment by a physician in their local clinic. I have explained that while the current findings suggest no immediate life threatening emergency they will require further evaluation and treatment by a physician of their choice in their area. They understand that it will be necessary for them to review the final reports of their ED visit with their clinic physician. We have reviewed indications for return to the Emergency Department. I have explained that additional time may need to pass and/or additional testing as an outpatient may be necessary before a definitive diagnosis can be made. They tell me they are willing to follow up as instructed within the timeframe I recommend. They appear to understand what we discussed. Additionally they understand that if they are unable to be seen by an outpatient physician they are welcome, and in fact should, return to the Emergency Department for a repeat evaluation. The patient is stable at time of discharge. EKG Diagnostic Results EKG Time: 15:57 EP Interpretation: MD Estelita Rate: normal Rhythm: NSR ST Segments: no acute changes Other Impression R axis deviation ASA given to the pt in ED: No Last Vital Signs Date Time Temp Pulse Resp B/P (MAP) Pulse Ox O2 Delivery O2 Flow Rate FiO2 08/10/19 14:32 71 18 Room Air 08/10/19 14:32 98.2 124/73 98 Disposition: HOME, SELF-CARE Condition: Stable Scripts Albuterol Sulfate* (ALBUTEROL SULFATE MDI*) 8.5 Gm Hfa.aer.ad 2 PUFF INH Q4H PRN for cough/wheezing, #1 EA 0 Refills Prov: Rachel Capone M.D. 08/10/19 Additional Instructions: The patient was provided with discharge instructions, notified to follow-up with a primary care doctor and or specialist in the next 24-48 hours, and to return to the ED if they have worsening of their symptoms. Please note that this report is being documented using [employer] technology. This can lead to erroneous entry secondary to incorrect interpretation by the dictating instrument. Rachel Capone M.D. Aug 10, 2019 15:01
--- NOTE | 2019-08-10 15:07 | NUR ---
ED Nurse Note: blood, swab collected, sent to lab
[2019-08-10 15:33] LABS: ANION GAP 11 mmol/L (5-15); BLOOD UREA NITROGEN 13 mg/dL (7-18); CALCIUM 9.7 MG/DL (8.5-10.1); CARBON DIOXIDE 27 MMOL/L (21-32); CHLORIDE 105 MMOL/L (98-107); CREATININE 1.2 MG/DL (0.55-1.30); POTASSIUM 4.3 MMOL/L (3.5-5.1); SODIUM 142 MMOL/L (136-145)
[2019-08-10 15:43] LABS: ALANINE AMINOTRANSFERASE 34 U/L (12-78); ALBUMIN 4.4 G/DL (3.4-5.0); ALBUMIN/GLOBULIN RATIO 1.3 (1.0-2.7); ALKALINE PHOSPHATASE 65 U/L (46-116); ASPARTATE AMINO TRANSFERASE 36 U/L (15-37); BILIRUBIN,TOTAL 0.5 MG/DL (0.2-1.0); CREATINE KINASE 269 U/L (26-308)
[2019-08-10 15:46] LABS: BASOPHILS % (AUTO) 3.2 % (0.0-2.0); EOSINOPHILS % (AUTO) 2.9 % (0.0-3.0); HEMATOCRIT 41.4 % (42.0-52.0); HEMOGLOBIN 14.4 G/DL (14.2-18.0); LYMPHOCYTES % (AUTO) 25.7 % (20.0-45.0); MEAN CORPUSCULAR VOLUME 98 FL (80-99); NEUTROPHILS % (AUTO) 58.3 % (45.0-75.0); PLATELET COUNT 338 K/UL (150-450); RED BLOOD COUNT 4.25 M/UL (4.70-6.10); RED CELL DISTRIBUTION WIDTH 12.1 % (11.6-14.8); WHITE BLOOD COUNT 4.5 K/UL (4.8-10.8)
[2019-08-10] MEDS ORDERED: Haloperidol 5mg/ml Inj IM ONE (16:00)
--- NOTE | 2019-08-10 16:15 | Diagnostic Imaging Report ---
Indication: Dyspnea Comparison: 05/28/2018 A single view chest radiograph was obtained. Findings: Cardiomediastinal appearance is within normal limits for age. The lungs are clear. Pulmonary vascularity is appropriate. The diaphragmatic contour is smooth and costophrenic angles are sharp. No pleural effusions are identified. The bones are osteopenic. Impression: No acute findings
[2019-08-10] MEDS ORDERED: ALBUTEROL SULF8.5 GM INH (16:28)
[2019-08-10 16:35] VITALS: BP 122/70
--- NOTE | 2019-08-10 16:35 | NUR ---
ER DISCHARGE NOTE: Patient is cleared to be discharged per ERMD, pt is aox4, on room air, with stable vital signs. pt was given dc and prescription instructions, pt was able to verbalize understanding, pt id band and iv site removed without complications. pt is able to ambulate with steady gait. pt took all belongings. Pt educated regarding to stay in quarantine until 2 weeks and wait for results of Covid. Pt given instructions and verbalized understanding.
== END 2019-08-10 16:35 | disposition home or self-care (01) ==
LOC: EDBD 14:26 → EMR 15:15
DX: J20.9 Acute bronchitis, unspecified (principal); B34.9 Viral infection, unspecified; B20 Human immunodeficiency virus [HIV] disease; Z86.19 Personal history of other infectious and parasitic diseases
CPT/HCPCS: 36415; 71045; 80053; 82550; 83605; 83735; 83880; 84484; 85025; 85610; 85730; 86710; 87040; 93005; 96360; J7030; Z7502; 99284

== ENCOUNTER 2020-06-07 13:03 | Emergency (ER) | payer OTHER ==
[~2020-06-07] VITALS: Ht 170.2 cm; Wt 56.7 kg
[2020-06-07 13:40] VITALS: BP 132/81
--- NOTE | 2020-06-07 13:40 | NUR ---
ED Nurse Note: Pt walked into ED for chest pain mid chest 8/10 pain for 3 days. Pt states he thinks its from congestion. Pt is alert and orientedx4, ambulatory. Pt has been seen by STEPHANIE.
--- NOTE | 2020-06-07 13:45 | Emergency Room Report ---
History of Present Illness General Chief Complaint: Chest Pain Source: Patient Present Illness HPI 64-year-old male presents to the emergency department complaining of 8 out of 10 severity productive cough with increased mucus production x3 days. Patient reports pain congestion in his chest that is worse at night that he is unable to clear. Patient reports he has been taking Mucinex [id number] with no relief. He denies chest pain at rest or with exertion. Patient denies cardiac history or history of hypertension, hyperlipidemia or familial cardiac history. He reports history of HIV and hep C. Patient states that his last viral load was undetectable and his CD4 count was well above 500. Patient is mainly concerned that he has pneumonia and he states that he has bronchitis it turns to pneumonia very quickly. He reports chills and denies fevers. He recently was tested for Covid and resulted negative. Patient denies headache, neck pain/stiffness, photophobia, sore throat. Patient does report nasal congestion and rhinorrhea. Denies palpitations, dizziness, LE edema or weakness/fatigue. No other aggravating or relieving factors. He is currently taking Biktarvy. 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 Patient History Past Medical History: see triage record Past Surgical History: none Pertinent Family History: none Immunizations: UTD Reviewed Nursing Documentation: PMH: Agreed; PSxH: Agreed Nursing Documentation-PMH Past Medical History: No History, Except For Hx Hypertension: No - HEP B Hx Pacemaker: No Hx Asthma: No Hx COPD: No Hx Diabetes: No Hx Cancer: No Hx Gastrointestinal Problems: No Hx Dialysis: No Hx Cerebrovascular Accident: No Hx Seizures: No Review of Systems All Other Systems: negative except mentioned in HPI Physical Exam Vital Signs Date Time Temp Pulse Resp B/P (MAP) Pulse Ox O2 Delivery O2 Flow Rate FiO2 06/07/20 13:14 99.0 88 17 133/83 (100) 99 Room Air Sp02 EP Interpretation: reviewed, normal General Appearance: no apparent distress, alert, GCS 15, non-toxic Head: normocephalic, atraumatic Eyes: bilateral eye normal inspection, bilateral eye PERRL ENT: hearing grossly normal, normal voice Neck: full range of motion Respiratory: chest non-tender, lungs clear, normal breath sounds, no respir atory distress, no accessory muscle use, no wheezing, speaking full sentences, wheezing - scant bilat. wheezes. Cardiovascular #1: regular rate, rhythm, no edema, no murmur, normal capillary refill Gastrointestinal: normal bowel sounds, non tender, soft Musculoskeletal: normal range of motion, gait/station normal, non-tender Neurologic: alert, motor strength/tone normal, oriented x3, sensory intact, responsive, speech normal Psychiatric: judgement/insight normal Skin: no rash, normal color Lymphatic: no adenopathy Medical Decision Making PA Attestation Dr. Street is my supervising Physician whom patient management has been discussed with. Diagnostic Impression: Primary Impression: Atypical pneumonia ER Course 64-year-old male presents to the emergency department complaining of 8 out of 10 severity productive cough with increased mucus production x3 days. Patient reports pain congestion in his chest that is worse at night that he is unable to clear. Patient reports he has been taking Mucinex [id number] with no relief. He denies chest pain at rest or with exertion. Patient denies cardiac history or history of hypertension, hyperlipidemia or familial cardiac history. He reports history of HIV and hep C. Patient states that his last viral load was undetectable and his CD4 count was well above 500. Patient is mainly concerned that he has pneumonia and he states that he has bronchitis it turns to pneumonia very quickly. He reports chills and denies fevers. He recently was tested for Covid and resulted negative. Patient denies headache, neck pain/stiffness, photophobia, sore throat. Patient does report nasal congestion and rhinorrhea. Denies palpitations, dizziness, LE edema or weakness/fatigue. No other aggravating or relieving factors. He is currently taking Biktarvy. Ddx considered but are not limited to URI, pneumonia, PE, strep pharyngitis, meningitis, COVID-19, OR/ PE just to name a few. Vital signs: Pt.is afebrile VS are WNL H&PE are most consistent with bronchitis--patient with no cardiac history and oxygen saturation of 100% on room air nontoxic in appearance in no acute distress. Not in respiratory distress. Pt. with available follow up with his PCP. ORDERS: -EK NSR bpm. ED INTERVENTIONS: None required at this time. DISCHARGE: At this time pt. is stable for d/c to home. Will provide printed patient care instructions, and any necessary prescriptions. Care plan and follow up instructions have been discussed with the patient prior to discharge. EKG Diagnostic Results Troponin ordered: No - no cardiac hx, more likely alt., dx. EKG Time: 13:29 Rate: normal - 66 bpm Rhythm: NSR ST Segments: no acute changes ASA given to the pt in ED: No PA Scribe Text This Interpretation was scribed by AUBREE Medley. Last Vital Signs Date Time Temp Pulse Resp B/P (MAP) Pulse Ox O2 Delivery O2 Flow Rate FiO2 06/07/20 13:14 99.0 88 17 133/83 (100) 99 Room Air Disposition: HOME, SELF-CARE Condition: Stable Scripts Benzonatate* (TESSALON PERLE*) 100 Mg Capsule 100 MG ORAL THREE TIMES A DAY, #30 PERLE Prov: Shayy Medley 06/07/20 Codeine/Promethazine Hcl* (PROMETHAZINE-CODEINE SYRUP*) 118 Ml Syrup 5 ML ORAL Q6H PRN for For Cough, #120 ML 0 Refills Prov: Shayy Medley 06/07/20 Azithromycin* (ZITHROMAX*) 250 Mg Tablet 250 MG ORAL DAILY, #6 TAB 0 Refills Take two tables once daily for 1 day, then one tablet once daily for 4 days. Prov: Shayy Medley 06/07/20 Albuterol Sulfate* (Albuterol Sulfate Hfa*) 8.5 Gm Hfa.aer.ad 2 PUFF INH Q6H, #1 INH Prov: Shayy Medley 06/07/20 [facility] Patient Instructions: Upper Respiratory Infection, Adult, [id number] Additional Instructions: Take medications as directed. Follow up with a Primary Care Provider in 3-5 days, even if your symptoms have resolved. --Please review list of primary care clinics, if you do not already have a primary care provider Return sooner to ED if new symptoms occur, or current symptoms become worse. Do not drink alcohol, drive, or operate heavy machinery while taking Cough Syrup as this may cause drowsiness. - Please note that this Emergency Department Report was dictated using myhomemoverestrictive preparation operator technology software, occasionally this can lead to erroneous entry secondary to interpretation by the dictation equipment. Shayy Medley Jun 07, 2020 13:45
[2020-06-07] MEDS ORDERED: TESSALON PERLE100 MG ORAL (13:46)
[2020-06-07] MEDS ORDERED: ALBUTEROL SULF8.5 G1 INH (13:46)
[2020-06-07] MEDS ORDERED: ZITHROMAX250 MG ORAL (13:46)
[2020-06-07] MEDS ORDERED: PROMETHAZINE-C118 M1 ORAL (13:46)
[2020-06-07 13:58] VITALS: BP 133/83
--- NOTE | 2020-06-07 13:59 | NUR ---
ED Nurse Note: Pt cleared by ERPA for discharge. DC instructions/prescription was given and explained to pt and verbalized understanding of teachings. All medical deviecs such as ID band removed. Pt is AAO x4, ambulatory and left with all personal belongings.
--- NOTE | 2020-06-07 14:30 | NUR ---
ER DISCHARGE NOTE: Patient is cleared to be discharged per ERMD, pt is aox4, on room air, with stable vital signs. pt was given dc and prescription instructions, pt was able to verbalize understanding, pt id band removed. pt is able to ambulate with steady gait. pt took all belongings. Pt educated regarding chest pain.
== END 2020-06-07 15:30 | disposition home or self-care (01) ==
LOC: EMR 13:43
DX: J18.9 Pneumonia, unspecified organism (principal); Z86.19 Personal history of other infectious and parasitic diseases; Z21 Asymptomatic human immunodeficiency virus [HIV] infection status
CPT/HCPCS: 93005; Z7502; 99283

== ENCOUNTER 2020-06-09 04:28 | Emergency (ER) | payer OTHER ==
[~2020-06-09] VITALS: Ht 182.9 cm; Wt 72.6 kg
[~2020-06-09 04:28] MED LIST changes: +ALBUTEROL SULF8.5 G1 INH
--- NOTE | 2020-06-09 04:42 | Emergency Room Report ---
History of Present Illness General Chief Complaint: To Be Triaged Present Illness HPI 64-year-old male with a history of HIV and hepatitis C here with productive cough and congestion. Patient is on antiretrovirals and claims to have recently had undetectable viral load and a normal CD4 count well above 500. Says over the past 5 days he has been having productive cough and congestion. He was here 2 days ago and was given a prescription for azithromycin, Tessalon, codeine. Claims to been taking his medications but despite this his symptoms have persisted. Denies any headache, vision changes, fevers, chills, chest pain palpitations, back pain, abdominal pain, nausea, vomiting, diarrhea, dysuria. Has been using albuterol inhaler without much relief. Tested negative for Covid last week. No leg swelling or leg pain or recent long car rides or plane rides or surgeries. Allergies: Coded Allergies: No Known Allergies (Unverified , 11/11/17) COVID-19 Screening Contact w/high risk pt: No Recent Travel to affected area: No Experienced COVID-19 symptoms?: No COVID-19 symptoms experienced: Cough Nursing Documentation-PMH Hx Hypertension: No - HEP B Hx Pacemaker: No Hx Asthma: No Hx COPD: No Hx Diabetes: No Hx Cancer: No Hx Gastrointestinal Problems: No Hx Dialysis: No Hx Cerebrovascular Accident: No Hx Seizures: No Review of Systems All Other Systems: negative except mentioned in HPI Physical Exam Sp02 EP Interpretation: reviewed, normal General Appearance: no apparent distress, alert, non-toxic Head: normocephalic, atraumatic Eyes: bilateral eye normal inspection, bilateral eye PERRL ENT: hearing grossly normal, normal pharynx, no angioedema, normal voice Neck: full range of motion, supple/symm/no masses Respiratory: chest non-tender, lungs clear, normal breath sounds, speaking full sentences, other Cardiovascular #1: regular rate, rhythm, no edema Cardiovascular #2: 2+ carotid (R), 2+ carotid (L), 2+ radial (R), 2+ radial (L), 2+ dorsalis pedis (R), 2+ dorsalis pedis (L) Gastrointestinal: normal bowel sounds, non tender, soft, non-distended, no guarding, no rebound Rectal: deferred Genitourinary: normal inspection, no CVA tenderness Musculoskeletal: back normal, normal range of motion, gait/station normal, non- tender Neurologic: alert, motor strength/tone normal, oriented x3, sensory intact, responsive, speech normal Psychiatric: judgement/insight normal, memory normal, mood/affect normal, no suicidal/homicidal ideation Lymphatic: no adenopathy Medical Decision Making Diagnostic Impression: Primary Impression: Upper respiratory infection Additional Impression: Viral respiratory illness ER Course CXR: No infiltrate/effusion. Mediastinum within normal limits. No consolidations. No free air under the diaphragm. No bony abnormalities EKG: NSR, no ischemia, intervals WNL. No ectopy. Rate 56 bpm Rhythm strip: patient monitored for arrhythmias - no malignant dysrhythmias, runs of PVCs, nor pauses noted 64-year-old male here with cough and congestion. Patient was here 2 days ago for the same symptoms and was given a prescription for azithromycin, codeine, Tessalon, albuterol inhaler. Patient was told to continue taking these medications including taking the full course of azithromycin. He had normal oxygen saturation and completely normal vital signs on room air throughout his stay in the emergency department. He had a completely normal physical exa mination. Lungs were clear. Chest x-ray normal. EKG normal. CBC, CMP, troponin all unremarkable. Covid negative. Given Decadron in the emergency department. Patient was told to continue the medications that he had been prescribed previously. Told to return to the emergency department any worsening shortness of breath. He expressed understanding and was discharged. Referrals: RUDI SAL,REFERRING (PCP) Lloyd Garcia M.D. Jun 09, 2020 04:42
--- NOTE | 2020-06-09 04:57 | NUR ---
ED Nurse Note: Pt walked in from home. He walks with a steady gait, axox4, vitals are stable on RA. Pt is able to speak in completel sentances and breathing is even and unlabored. He states that he is here because he feels short of breath and that he is not getting better. He states that he is unable to lie down without feeling like he can't breathe. He has a dry persistent cough. Pt states that his last covid test was negative.
[2020-06-09 05:01] VITALS: BP 119/82
[2020-06-09 05:09] LABS: HEMATOCRIT 46.9 % (42.0-52.0); HEMOGLOBIN 15.6 G/DL (14.2-18.0); MEAN CORPUSCULAR VOLUME 96 FL (80-99); PLATELET COUNT 271 K/UL (150-450); RED BLOOD COUNT 4.88 M/UL (4.70-6.10); RED CELL DISTRIBUTION WIDTH 11.6 % (11.6-14.8); WHITE BLOOD COUNT 3.4 K/UL (4.8-10.8)
--- NOTE | 2020-06-09 05:11 | Diagnostic Imaging Report ---
EXAM: XR Chest, 1 View CLINICAL HISTORY: SOB TECHNIQUE: Frontal view of the chest. COMPARISON: Chest x-ray 08/10/2019 FINDINGS: Lungs: No consolidation. Pleural space: No pleural effusion. No pneumothorax. Heart: Unremarkable. No cardiomegaly. Bones/joints: Unremarkable. IMPRESSION: No acute cardiopulmonary abnormality.
[2020-06-09] MEDS ORDERED: dexAMETHasone 10mg/ml Inj IV ONE (05:30)
[2020-06-09 05:44] VITALS: BP 105/78
[2020-06-09 05:45] LABS: ANION GAP 9 mmol/L (5-15); BLOOD UREA NITROGEN 10 mg/dL (7-18); CALCIUM 9.3 MG/DL (8.5-10.1); CARBON DIOXIDE 28 MMOL/L (21-32); CHLORIDE 95 MMOL/L (98-107); CREATININE 1.4 MG/DL (0.55-1.30); POTASSIUM 3.1 MMOL/L (3.5-5.1); SODIUM 132 MMOL/L (136-145)
--- NOTE | 2020-06-09 05:46 | NUR ---
ER DISCHARGE NOTE: Patient is cleared to be discharged per ERMD, pt is aox4, on room air, with stable vital signs. pt was given dc instructions, pt was able to verbalize understanding, pt id band and iv site removed without complications. pt is able to ambulate with steady gait. pt took all belongings. Pt left in a private car.
[2020-06-09 05:56] LABS: ALANINE AMINOTRANSFERASE 44 U/L (12-78); ALBUMIN 4.6 G/DL (3.4-5.0); ALBUMIN/GLOBULIN RATIO 1.2 (1.0-2.7); ALKALINE PHOSPHATASE 64 U/L (46-116); ASPARTATE AMINO TRANSFERASE 46 U/L (15-37); BILIRUBIN,TOTAL 1.5 MG/DL (0.2-1.0)
[2020-06-09 05:58] LABS: BILIRUBIN,DIRECT 0.3 MG/DL (0.0-0.3)
== END 2020-06-09 05:47 | disposition home or self-care (01) ==
LOC: EMR 04:39
DX: J06.9 Acute upper respiratory infection, unspecified (principal); B34.9 Viral infection, unspecified; Z21 Asymptomatic human immunodeficiency virus [HIV] infection status; Z86.19 Personal history of other infectious and parasitic diseases
CPT/HCPCS: 36415; 71045; 80053; 82248; 83880; 84484; 85007; 85025; 93005; 96374; U0002; Z7502; 99284